=== PATIENT | female | born 1990 | race Caucasian/White ===

== ENCOUNTER 2018-07-25 19:36 | Emergency (ER) | payer OTHER ==
[2018-07-25] MEDS ORDERED: Albuterol (2.5 MG) 0.5 % CONC 2.5 MG/0.5 ML NEB.SOLN (ICU and ED only) INH ONE (23:30)
--- NOTE | 2018-07-25 23:35 | ED ---
Respiratory - HPI Summary HPI Summary: 28 year old female presents with 4 day history of fever, chest tightness, and non-productive cough. She was evaluated yesterday at [address] [place] [address], had a negative CXR, received nebulizer treatment x 1, and discharged home with albuterol inhaler with bronchitis. She states she continues to run fever with max temperature of 103 F. She has used her inhaler a couple times but does not feel that it is improving her symptoms. Last used this morning. Reports mild nasal congestion, chest tightness, mild nausea, and non-productive cough. Denies headache, sinus pressure, sore throat, ear pain, shortness of breath, abdominal pain, vomiting, or diarrhea. - History of Current Complaint Chief Complaint: EDFluSymptoms Stated Complaint: FEVER/HEAVY CHEST Time Seen by Provider: 07/25/18 22:41 Hx Obtained From: Patient Onset/Duration: Gradual Onset, Lasting Days Pain Intensity: 0 Character: Cough (Nonproductive) Sputum Amount: None Aggravating Factor(s): Nothing Alleviating Factor(s): Nothing - Risk Factors Pulmonary Embolism Risk Factors: Negative - Allergy/Home Medications Allergies/Adverse Reactions: Allergies Allergy/AdvReac Type Severity Reaction Status Date / Time surgical jes Allergy redness Uncoded 07/25/18 19:45 PMH/Surg Hx/FS Hx/Imm Hx Endocrine/Hematology History: Denies: Hx Anticoagulant Therapy, Hx Diabetes, Hx Thyroid Disease Cardiovascular History: Denies: Hx Congestive Heart Failure, Hx Deep Vein Thrombosis, Hx Hypertension , Hx Myocardial Infarction, Hx Pacemaker/ICD Respiratory History: Denies: Hx Asthma, Hx Chronic Obstructive Pulmonary Disease (COPD), Hx Lung Cancer GI History: Reports: Hx Gall Bladder Disease - Cholecytectomy Denies: Hx Gastrointestinal Bleed, Hx Ulcer, Hx Urosepsis History: Reports: Other Problems/Disorders - UTI'S Denies: Hx Kidney Stones, Hx Renal Disease Sensory History: Reports: Hx Contacts or Glasses Denies: Hx Hearing Aid Opthamlomology History: Reports: Hx Contacts or Glasses Neurological History: Denies: Hx Dementia, Hx Migraine, Hx Seizures, Hx Transient Ischemic Attacks (TIA) Psychiatric History: Denies: Hx Anxiety, Hx Depression, Hx Panic Disorder, Hx Schizophrenia, Hx Bipolar Disorder - Surgical History Surgery Procedure, Year, and Place: C SECTION X2, GALLBLADDER Hx Anesthesia Reactions: No Infectious Disease History: No Infectious Disease History: Denies: Hx Hepatitis, Hx Human Immunodeficiency Virus (HIV), Traveled Outside the [place] in Last 30 Days - Family History Known Family History: Positive: Non-Contributory - Social History Occupation: Employed Full-time Lives: With Family Alcohol Use: Rare Hx Substance Use: No Substance Use Type: Reports: None Hx Tobacco Use: Yes Smoking Status (MU): Former Smoker Type: Cigarettes Review of Systems Positive: Fever, Chills, Fatigue Negative: Drainage, Erythema Positive: Nasal Discharge. Negative: Sore Throat, Ear Ache Negative: Palpitations, Chest Pain Positive: Cough. Negative: Shortness Of Breath Positive: Nausea. Negative: Abdominal Pain, Vomiting, Diarrhea All Other Systems Reviewed And Are Negative: Yes Physical Exam - Summary Physical Exam Summary: GENERAL APPEARANCE: Well developed, well nourished, alert and cooperative, and appears to be in no acute distress. EYES: Conjunctiva clear. No discharge. EARS: External auditory canals and tympanic membranes clear, hearing grossly intact. NOSE: No nasal discharge. THROAT: Oral cavity and pharynx normal. No tonsilar inflammation, swelling, exudate, or lesions. Teeth and gingiva in good general condition. NECK: Neck supple, non-tender without lymphadenopathy. CARDIAC: Normal S1 and S2. No S3, S4 or murmurs. Rhythm is regular. There is no peripheral edema, cyanosis or pallor. Extremities are warm and well perfused. Capillary refill is less than 2 seconds. LUNGS: Diminished breath sounds bilaterally, more prominent over the LLL. ABDOMEN: Positive bowel sounds. Soft, nondistended, nontender. No guarding or rebound. No masses or hepatosplenomegally. MUSKULOSKELETAL: ROM intact to all extremities. No joint erythema or tenderness. Normal muscular development. Normal gait. EXTREMITIES: No significant deformity or joint abnormality. No edema. Peripheral pulses intact. NEUROLOGICAL: Strength and sensation symmetric and intact throughout. SKIN: Skin normal color, texture and turgor with no lesions or eruptions. Triage Information Reviewed: Yes Vital Signs On Initial Exam: Initial Vitals Temp Pulse Resp BP Pulse Ox 103.2 F 119 20 138/70 96 07/25/18 19:40 07/25/18 19:40 07/25/18 19:40 07/25/18 19:40 07/25/18 19:40 Vital Signs Reviewed: Yes Diagnostics - Vital Signs Vital Signs Temp Pulse Resp BP Pulse Ox 07/25/18 23:23 100.4 F 98 20 128/78 97 07/25/18 21:44 102.5 F 109 18 133/66 96 07/25/18 19:40 103.2 F 119 20 138/70 96 - Laboratory Lab Statement: Any lab studies that have been ordered have been reviewed, and results considered in the medical decision making process. - Radiology No standard instances Radiology Interpretation Completed By: ED Physician - LLL pneumonia Re-Evaluation - Re-Evaluation First Eval Comment: Postnebulizer treatment patient reports breathing easier and chest tightness resolved. Air exchange much improved however breath sounds remain diminished in the LLL. Disposition - Course Course Of Treatment: 28 year old female presents with 4 day history of fever, chest tightness, and non-productive cough. She was evaluated yesterday at [address] [place] [address], had a negative CXR, received nebulizer treatment x 1, and discharged home with albuterol inhaler with bronchitis. She states she continues to run fever with max temperature of 103 F. She has used her inhaler a couple times but does not feel that it is improving her symptoms. Last used this morning. Reports mild nasal congestion, chest tightness, mild nausea, and non-productive cough. Denies headache, sinus pressure, sore throat, ear pain, shortness of breath, abdominal pain, vomiting, or diarrhea. She was febrile and tachycardic with a non-productive cough at presentation. Exam revealed bilateral diminished breath sounds, more prominent in the LLL. Rapid flu negative. X-ray appears to show an early LLL pneumonia. She was given an albuterol nebulizer treatment with improvement in symptoms although her breath sounds remained diminished in the LLL. She was given her first dose of azithromycin in the ED and prescribed the remaining doses over the next 4 days. She was also prescribed Tessalon Perles for cough management and encourage to use her albuterol inhaler q4-6 hours as needed. She is to follow up with her PCP in 3 days for reevaluation. Warning symptoms were reviewed. Patient verbalizes understanding and agrees with POC. - Differential Dx - Cardiopulmonary Differential Diagnoses - Cardiopulmonary: Acute Dyspnea, Asthma, Bronchitis, Influenza, Lower Resp Infection - Diagnoses Provider Diagnoses: LLL pneumonia Discharge - Sign-Out/Discharge Documenting (check all that apply): Patient Departure - Discharge Plan Condition: Stable Disposition: HOME Prescriptions: Azithromycin TAB* [Zithromax TAB (Z-ZARA) 250 mg #6 tabs] 250 mg PO DAILY #4 tab Benzonatate CAP* [Tessalon 100 MG CAP*] 100 mg PO TID PRN #30 cap PRN Reason: Cough Patient Education Materials: Pneumonia (ED) Forms: *Work Release Referrals: Roxana Bailey NP [Primary Care Provider] - 3 Days () Additional Instructions: Your chest X-ray in the emergency room was suspicious for an early left lower lobe pneumonia. The X-ray will be reviewed by the radiologist and we will contact you if they see anything that will change your treatment plan. The rapid flu test was negative. We started you on azithromycin here in the emergency room. Starting tomorrow take 1 tab every day for the next 4 days. Stay well hydrated especially if you are running fever. Take Tessalon Perles 1 cap every 8 hours as needed for cough. Continue to use the albuterol inhaler 2 puffs every 4-6 hours as needed for chest tightness or wheezing. Follow up with your primary care provider in 3 days for recheck of symptoms. Return to the emergency room if you have persistent fever greater than 100.5 F despite taking acetaminophen or ibuprofen, have worsening shortness of breath, chest pain, become weak or dizzy, or have any worsening of symptoms. - Billing Disposition and Condition Condition: STABLE Disposition: Home
[2018-07-25] MEDS ORDERED: Albuterol 2.5 MG/3 ML NEB.SOL* (0.083%) INH ONE (23:38)
[2018-07-25] MEDS ORDERED: Azithromycin TAB* 250 MG PO ONE (23:47)
[2018-07-26 00:20] VITALS: BP 121/78
== END 2018-07-26 00:19 | disposition home or self-care (01) ==
LOC: ED 19:36
DX: J18.9 Pneumonia, unspecified organism (principal); Z91.048 Other nonmedicinal substance allergy status; Z87.891 Personal history of nicotine dependence
CPT/HCPCS: 71046; 99282; A9270-GY